=== PATIENT | male | born 1980 | race Caucasian/White ===

== ENCOUNTER → 2016-08-30 | Day surgery (SDC) | payer BC ==
[2016-08-08 15:00] VITALS: Ht 182.9 cm; Wt 79.5 kg
[~2016-08-30] VITALS: Ht 182.9 cm; Wt 79.5 kg
[~2016-08-30] MED LIST: ALBUT/IPRATROP 3MG/0.5MG NEB 3 ML VIAL INH ONE; ALBUT/IPRATROP 3MG/0.5MG NEB 3 ML VIAL ONE; ATROPINE SULFATE 0.1 MG/ML 5ML SYR IV PRN; BUPIVACAINE/EPINEPHRINE 0.25% 1:200,000 30 ML VIAL ONE; BUPIVACAINE/EPINEPHRINE 0.5% MPF 1:200,000 30 ML VIAL ONE; CEFAZOLIN 2000 MG/60 ML D5W IV SCH; DEXAMETHASONE SOD INJ 4 MG/ML VIAL ONE; EpHEDrine SULFATE INJ 50 MG/ML AMP IV PRN; FENTANYL CITRATE INJ 50 MCG/1 ML 2 ML VIAL ONE; HYDROmorphone INJ 0.5 MG/0.5 ML SYR ONE; LACTATED RINGER'S 1000ML 1,000 ML IV SCH; LEVOFLOXACIN 500 MG TAB PO SCH; LIDOCAINE HCL 2% 2 ML VIAL (20MG/ML) ONE; MIDAZOLAM HCL 1 MG/ML 2ML VIAL ONE; ONDANSETRON INJ 2 MG/ML 2 ML VIAL IV PRN; ONDANSETRON INJ 2 MG/ML 2 ML VIAL ONE; OXYCODONE/ACETAMINOPHEN 5-325 TAB PO PRN; PROMETHAZINE HCL INJ 12.5 MG in SODIUM CHLORIDE 0.9% 50ML 50 ML IV STA; PROMETHAZINE HCL INJ 25 MG/ML 1 ML VIAL ONE; PROPOFOL IV EMULSION 10 MG/ML 20 ML VIAL IV ONE; SCOPOLAMINE 1.5 MG TDSY TD ONE; SODIUM CHLORIDE 0.9% 1000ML 1,000 ML IV SCH
--- NOTE | 2016-08-30 06:55 | History & Physical Bridge Note ---
H&P Re-Evaluation Bridge Note: I have examined the patient, reviewed the History & Physical and in the interval since the performance of the History & Physical I have noted the following changes of clinical significance: No changes noted
--- NOTE | 2016-08-30 06:57 | Discharge Instructions ---
Discharge Instructions Visit Reason for Visit: Acl Graft Tear Right Knee Discharge Discharge Diagnosis / Problem: same Discharge Goals Goal(s): Decrease discomfort, Improve function Medications Stopped Medications Name(s): na Restart Stopped Medication(s): use scripts as directed Activity Recommendations Activity Limitations: as noted below Lifting Limitations: until after follow-up appointment Exercise/Sports Limitations: until after follow-up appointment May Resume Sexual Activity: when tolerated Shower/Bathe: keep incision dry Driving or Machine Use: Weightbearing Status: Right weightbearing (as tolerated) Anesthesia . Post Anesthesia Instructions: If you have had General Anesthesia or IV Sedation: * Do not drive today. * Resume driving when surgeon permits. * Do not make important decisions or sign legal documents today. * Call surgeon for: 1. Temperature elevations greater than 101 degrees F. 2. Uncontrollable pain. 3. Excessive bleeding. 4. Persistent nausea and vomiting. 5. Medication intolerance (nausea, vomiting or rash). * For nausea and vomiting use only clear liquids such as: tea, soda, bouillon until nausea subsides, then gradually increase diet as tolerated. * If you have any concerns or questions, call your surgeon's office. If physician is unavailable and it is an emergency, call 911 or go to the nearest emergency room. . Instructions / Follow-Up Instructions / Follow-Up The following instructions are a useful guide to questions you may have after your Anterior Cruciate Ligament Reconstruction surgery. If you have any questions contact the office at . ACTIVITY RECOMMENDATIONS: * Heavy manual labor is not permitted until 4-6 months after surgery. * Sports are not permitted until 6-9 months after surgery. * Return to activity is individualized. * DRIVING: Driving is not permitted until 3-4 weeks after surgery at a minimum. Please ask your doctor when it is safe to resume driving. If you have an automatic vehicle and your left leg has been operated on, then you may begin driving as soon as you are comfortable and can drive safely. * BATHING: You may shower or sponge-bathe immediately after surgery. The dressing will need to be covered with a plastic bag or plastic wrap until the dressing is changed on the fourth or fifth day after surgery. Once the dressing has been changed on the fourth or fifth day after surgery, you may shower and get the incision wet. * Wash with regular soap and water. * Do not bathe (submerge the incision), soak, swim or use a hot tub until the incision is completely healed over with normal skin and the doctor has given the OK to proceed. * There is no need to apply any ointments, powders or salves to your incision. * Do not apply alcohol or hydrogen peroxide directly to the incision. Diluted peroxide (50:50 mixture with sterile saline) may be used to clean dried blood from around the incision area. WORK/SCHOOL: * You may return to sedentary work or school when you are feeling comfortable. This is usually 3-7 days after surgery. * Expect increased discomfort with increased activity. Continue to elevate and ice the leg as much as possible. DIET: * Resume previous diet. MEDICATIONS: * You will have a prescription for pain medication and an anti-inflammatory medication after surgery. Use the pain pills for severe pain and the anti-inflammatory for less severe pain. * Once the pain pills have run out, try to use the anti-inflammatory. If this is not effective then contact the office for assistance. * The pain medication may cause nausea, constipation and sleepiness. You should see how they affect you before driving or similar activity. * The anti-inflammatory may cause stomach upset and bleeding. If this occurs, let your doctor know immediately . * Some patients may need blood clot prevention. This can be done with either a pill or a simple shot. Your doctor will advise you on when to begin these medications and how to take them. * Do not take aspirin or other anti-inflammatory products (i.e. Advil or Aleve ) if taking blood thinner medication. * Take a stool softener like Colace or a stimulant like Senokot to prevent constipation. SPECIAL CARE INSTRUCTIONS: The following instructions are a useful guide to questions you may have after your surgery. If you have any questions contact the office at . ICE: * You have the option of an ice cooler, gel packs or ice bags. * If you have an ice cooler, refer to the instructions for that device. * If you do not have an ice cooler, then you will need to use ice bags or gel packs. * Do not apply ice directly to the skin. * Use a thin dressing or stockinet between the skin and ice bag. * Apply ice for 20-30 minutes and repeat every 2-4 hours. This is especially important for the first 7-10 days after surgery. * Once the pain improves, use ice as needed. * The ice cooler can be used continuously. ELEVATION: * Keep your leg elevated at or above the level of your heart as much as possible. * Expect some increased discomfort and swelling if you are standing for any length of time. * When lying down, avoid placing anything under your knee. Rather, prop your leg up by placing several pillows under your heel or calf. DRESSING: * Your dressing will be changed at your first therapy appointment approximately 4-5 days after surgery. * Band-Aids, tape strips or gauze may be applied. You may then change your dressing daily. * Always wash your hands prior to touching the incision area. * Reapply dressing followed by the Yo wrap or Tubi-reporter anchor stockinet, ice cooling pad and then the brace. * Once the stitches are removed, you may leave the wound open to air or cover with an Yo Bandage or Tubi-reporter anchor stockinet. * If you have been given a white elastic stocking (HEATHER hose), wear as much as possible for the first 1-3 weeks depending on swelling. * Expect some bloody drainage for the first few days after surgery. * Leave the tape strips in place for 5-7 days. * Band-Aids and gauze may be changed daily. CRUTCHES: * You will need to use crutches after surgery. * Until your first doctor's appointment, you must use your crutches at all times when walking and should put no more than 50% of your normal weight on the surgical leg. * After your first doctor's appointment, you may gradually progress to full weight bearing and discontinue crutches as tolerated under the guidance of your therapist. * If you have had a microfracture procedure done, you may be advised to be non- weight bearing for up to 6 weeks. BRACE: * After surgery, you will be placed into a range of motion brace locked with your leg straight. This brace is to be worn at all times when walking (even with the crutches) and sleeping until your first doctors appointment. * The brace may be removed for therapy. * After your first therapy appointment, your therapist will open the brace to allow bending of the knee once your muscles are working better. * Until your first doctor's appointment, you should sleep with your brace locked with your knee fully straight. * If you have chosen to use a functional ACL brace then this brace will be supplied about 2-3 months after your surgery. During that time, you will attend therapy 2- 3 times per week. You will also need to do daily exercises for range of motion and strength as instructed. PROBLEMS/QUESTIONS: * If you have any problems such as severe pain, numbness, tingling or high fevers or if you have any questions, please contact the office at [phone]. * It is not uncommon to have some numbness and tingling after the surgery especially if you have had a nerve block done. This should gradually improve over the first 1- 2 days. If this persists longer or worsens then contact the office. FOLLOW UP VISIT: * If not already scheduled, please call the office at to schedule follow-up appointments for approximately 10 days and one month after surgery followed by monthly appointments thereafter. Diet Recommendations Recommended Home Diet: resume previous diet Procedures Procedures Performed: see op note Pending Studies Studies pending at discharge: no Medical Emergencies . Who to Call and When: Medical Emergencies: If at any time you feel your situation is an emergency, please call 911 immediately. . Non-Emergent Contact Non-Emergency issues call your: Specialist Call Non-Emergent contact if: temperature is above 101.5 . . "Provider Documentation" section prepared by Jeffrey Morrison.
--- NOTE | 2016-08-30 09:18 | [facility] Post Operative Brief Note ---
Immediate Operative Summary Operative Date Aug 30, 2016. Pre-Operative Diagnosis Right knee anterior cruciate ligament tear with meniscal degeneration Post-Operative Diagnosis Same as preop Procedure(s) Performed Right Knee Arthroscopic Revision Anterior Cruciate Ligament Reconstruction With Patellar Tendon Autograft, Debridement, Partial Medial Meniscectomy Surgeon Dr. Morrison Machine Tester Surgeon(s) Richard Houston PA-C Estimated Blood Loss 25 ML Findings acl graft tear complete/absent Fluids (cc crystalloids) 1300cc Specimens None Drains none Anesthesia lma/block Complication(s) None Disposition Recovery Room / PACU
--- NOTE | 2016-08-30 09:33 | OPERATIVE REPORT ---
DATE OF OPERATION: 08/30/2016 PREOPERATIVE DIAGNOSIS: Anterior cruciate ligament graft tear, right knee. POSTOPERATIVE DIAGNOSIS: Same. OPERATION PERFORMED: 1. Exam under anesthesia. 2. Diagnostic arthroscopy. 3. Arthroscopic ACL reconstruction using central one-third patellar tendon autograft. SURGEON: Dr. Morrison. PHYSICIAN EXECUTIVE: Richard Houston PA-C. No resident or fellow available. PERIOPERATIVE SITUATION: Medically cleared male with intractable knee giving way and physical exam, x-ray and MRI scan consistent with graft tear. At this point in time, we will proceed with surgical treatment with revision ACL reconstruction. OPERATION AND FINDINGS: PROCEDURE: The patient appropriately identified, site verified, consent verified, 2 grams of Ancef confirmed as being given. The knee was examined revealing a positive Kacie and pivot shift. The medial collateral and lateral collateral ligaments were normal on posterolateral corner and posteromedial corner were normal. The PCL was normal. The leg was then prepped and draped in usual routine fashion and the tourniquet inflated to 275 mmHg after exsanguination of limb with a rubber Esmarch bandage for a total of approximately 70 minutes. An anterior incision was then made in the central 1/3 patellar tendon harvested with bone blocks being roughly 25 x 10 x 5 on both sides. They were then trimmed appropriately to fit through a 9 mm femoral tunnel, 10 mm tibial tunnel and tagged with #2 Ethibond on the tibia and a Arthrex TightRope on the patella. This was then placed in a sterile specimen container. The knee was then arthroscoped with no major articular disease noted in any of the compartments; however, there was some minor surface scuffing in all 3 compartments. The medial meniscus was intact. Lateral meniscus had some minor fraying along the free margin. This was incidentally resected. There was a posterior horn resection done previously. The rim of the meniscus and the meniscal capsular junction was intact. The ACL was completely gone. The PCL was trimmed of any synovial tissue and then a limited notchplasty performed. Using the point and shoot guide a tibial tunnel made 10 mm thick, it was roughly in virgin bone. There was no major interfere with any of the previous screw or hardware from the previous revision ACL. This was then debrided. Using a transtibial technique due to the tibial tunnel being medial and proximal I was able to get low and lateral on the wall. A pin passed in excellent position and a socket made there. Excellent tunnel was obtained. All bone debris was removed. The graft was then passed with a TightRope. Additional knot was placed using a sliding technique on the lateral side and the graft fixation was excellent. The knee was then tensioned at about 10 degrees of flexion and after a trough was cut was stapled into position with 8 mm sonal with excellent fixation. The Kacie was completely eliminated. The pivot shift was completely eliminated. The knee had full hyperextension and full flexion. Wound was then irrigated and then the superolateral incision closed with 3-0 nylon, the peritenon with 2-0 nylon after bone trimmings were used to graft the patella. The fascia over the tibial tunnel closed with 0 Vicryl, the subcutaneous layer with 2-0 plain and skin running subcuticular 2-0 Prolene. Some Marcaine about 20 mL was injected, 0.5% with epinephrine was injected in and around the incision. The wound was then dressed appropriately with Xeroform, 4 x 4 gauze, sterile Webril, ABD pads, Yo bandage, and a range of motion brace locked at 0 degrees. The patient will be weightbearing to tolerance. Deep venous thrombosis prophylaxis per protocol. Estimated blood loss 25 mL. Crystalloid 1900 mL. I attest to the content of the Intraoperative Record and any orders documented therein. Any exceptions are noted below. MTDD
[2016-08-30] MEDS: FENTANYL CITRATE INJ 50 MCG/1 ML 2 ML VIAL IV PRN ×2 (09:39→09:56)
[2016-08-30 10:32] VITALS: TEMP 36.9
--- NOTE | 2016-08-30 11:43 | OPERATIVE REPORT ---
DATE OF OPERATION: 08/30/2016 PREOPERATIVE DIAGNOSIS: Right knee anterior cruciate ligament graft tear. POSTOPERATIVE DIAGNOSIS: Right knee same. PROCEDURE: Right knee arthroscopy, ACL reconstruction using patellar tendon autograft. SURGEON: Dr. Morrison. SUSTAINABILITY PROJECT MANAGER: Richard Houston PA-C. HISTORY OF PRESENT ILLNESS: This 36-year-old male patient presented to the office with complaints of right knee instability. He previously had an ACL reconstruction done in [place] that failed. He elected to proceed with surgical intervention after being educated about potential risks and outcomes. Preoperative x-ray and MRI were obtained. OPERATION: The patient was administered a regional block and then taken to the operating room where he was given general anesthetic. He was prepped and draped in the usual sterile fashion. Please see Dr. Morrison's operative report for specifics of the procedure. I was present for the entire case from initial patient positioning through final wound closure. Assistance was provided in tissue retraction, hemostasis, graft harvest, graft placement, hardware placement, arthroscopy, and final wound closure. The patient was taken to the recovery room in satisfactory condition. I attest to the content of the Intraoperative Record and any orders documented therein. Any exceptio ns are noted below.
[2016-08-30 11:55] VITALS: BP 112/66; PULSE 64; O2SAT 99
--- NOTE | 2016-08-30 12:00 | Anesthesia Progress Nt - [facility] ---
Anesthesia Post Op Note Date & Time Aug 30, 2016 at 12:00 Vital Signs Pain Intensity: 2 Vital Signs Past 12 Hours Date Time Temp Pulse Resp B/P Pulse Ox O2 Delivery O2 Flow Rate FiO2 08/30/16 11:55 64 14 112/66 99 Room Air 08/30/16 11:39 65 14 121/73 97 Room Air 08/30/16 10:32 36.9 86 16 121/82 97 Room Air 08/30/16 10:20 36.8 78 14 132/77 94 Room Air 08/30/16 10:19 70 8 08/30/16 10:19 69 8 95 08/30/16 10:18 132/77 08/30/16 10:14 70 5 93 08/30/16 10:14 71 5 08/30/16 10:13 125/81 08/30/16 10:09 69 8 94 08/30/16 10:09 69 8 08/30/16 10:08 137/84 08/30/16 10:04 79 12 08/30/16 10:04 78 12 97 08/30/16 10:03 138/85 08/30/16 09:59 63 3 08/30/16 09:59 62 3 99 08/30/16 09:58 139/80 08/30/16 09:54 68 9 08/30/16 09:54 68 9 98 08/30/16 09:53 134/82 08/30/16 09:49 78 9 08/30/16 09:49 77 9 96 08/30/16 09:48 126/96 08/30/16 09:44 85 10 100 08/30/16 09:44 85 10 08/30/16 09:43 139/88 08/30/16 09:39 85 12 100 08/30/16 09:39 85 12 08/30/16 09:38 139/84 08/30/16 09:34 97 14 08/30/16 09:34 97 14 100 08/30/16 09:33 143/71 08/30/16 09:29 87 13 100 08/30/16 09:29 88 13 08/30/16 09:28 143/83 08/30/16 09:24 86 7 100 08/30/16 09:24 89 7 08/30/16 09:23 36.7 81 12 125/71 98 Mask 6 08/30/16 09:23 121/67 08/30/16 09:21 125/71 08/30/16 07:29 0 08/30/16 07:28 95 19 127/71 08/30/16 07:23 95 08/30/16 07:23 94 17 123/67 100 08/30/16 07:20 17 08/30/16 07:18 90 08/30/16 07:18 93 17 124/70 100 08/30/16 07:16 95 114/69 100 Mask 4 08/30/16 07:14 114/69 08/30/16 07:13 86 0 08/30/16 07:08 81 0 08/30/16 07:03 79 0 08/30/16 06:58 77 0 08/30/16 06:53 74 0 08/30/16 06:31 125/77 08/30/16 06:31 36.6 75 18 127/77 97 Room Air Notes Mental Status: alert / awake / arousable, participated in evaluation Pt Amnestic to Procedure: Yes Nausea / Vomiting: adequately controlled Pain: adequately controlled Airway Patency, RR, SpO2: stable & adequate BP & HR: stable & adequate Hydration State: stable & adequate Anesthetic Complications: no major complications apparent
== END | disposition home or self-care (01) ==
LOC: X.SURG 06:06
PROVIDERS: ATTEND Physical Medicine & Rehabilitation Sports Medicine
DX: T84.89XA Other specified complication of internal orthopedic prosthetic devices, implants and grafts, initial encounter (principal); S83.511A Sprain of anterior cruciate ligament of right knee, initial encounter; M23.51 Chronic instability of knee, right knee; X58.XXXA Exposure to other specified factors, initial encounter; Y93.66 Activity, soccer; Z98.890 Other specified postprocedural states

== ENCOUNTER → 2016-09-26 | Outpatient (CLI) | payer BC | END | disposition home or self-care (01) | LOC: C.RDSM 07:47 | PROVIDERS: ATTEND Physical Medicine & Rehabilitation Sports Medicine | DX: S83.511D Sprain of anterior cruciate ligament of right knee, subsequent encounter (principal); S83.421D Sprain of lateral collateral ligament of right knee, subsequent encounter; X58.XXXD Exposure to other specified factors, subsequent encounter ==